=== PATIENT | female | born 1940 | race Caucasian/White ===

== ENCOUNTER 2016-04-23 20:08 | Emergency (ER) | payer MEDICARE, OTHER ==
--- NOTE | ~2016-04-23 | ER ---
PATIENT'S NAME: ANGIE EVANS [facility] AGE: 75 Y [address] ROOM: [place] [address] LOCATION: [facility] ADMIT DATE: 04/23/2016 ER/Outpatient Report DISCHARGE DATE: 04/23/2016 FAMILY PHYSICIAN: Precious Varela MD ATTENDING PHYSICIAN: Abdon Romero Time of Arrival: 2010 hours. Time of Evaluation: 2019 hours. CHIEF COMPLAINT: Fall. HISTORY OF PRESENT ILLNESS: The patient states about 12:30 today, she was leaving the dentist's office in [place] when she slipped on a curb and fell, hit her head and her left knee. States that she did not have any loss of consciousness. Bent her glasses, drove to the eye doctor in [place] and got her glasses fixed, and then drove home. States this evening she was out to dinner with friends and her , and was telling her friend about her fall and her friend stated that since she was on a blood thinner, she really should go in and get evaluated to make sure that she did not have any kind of injury as a result of the fall. She states she did talk with Dr. Thomasno, who was on-call tonight for her primary provider, and Dr. Thomason agree that she should come in and be evaluated. She states she is on blood thinners due to history of atrial fibrillation. The patient has abrasion to the forehead and right eyebrow, and bruising with discomfort of the left knee. ALLERGIES: NO KNOWN ALLERGIES. CURRENT MEDICATIONS: On her chart and reviewed by me. PAST MEDICAL HISTORY: Parkinson's, atrial fib, coronary artery disease, hypertension. PAST SURGERIES: Cardiac stents. SOCIAL HISTORY: She lives here in [place] with her . REVIEW OF SYSTEMS: All negative other than those mentioned in the HPI. PATIENT'S NAME: ANGIE EVANS [facility] AGE: 75 Y [address] ROOM: [place] [address] LOCATION: [facility] ADMIT DATE: 04/23/2016 ER/Outpatient Report DISCHARGE DATE: 04/23/2016 FAMILY PHYSICIAN: Precious Varela MD ATTENDING PHYSICIAN: Abdon Romero PHYSICAL EXAMINATION: VITAL SIGNS: She weighed 76.7 kg. Blood pressure is 164/86, pulse is 74, respirations 18, temperature of 97.7, and O2 saturation was 97% on room air. GENERAL: She is awake, alert, and oriented x4. SKIN: [place], warm, and dry. RESPIRATIONS: Even and nonlabored. HEENT: Pupils are equal reactive to light. Extraocular movement is intact. TMs are clear. Nasal clear. Oropharynx is clear. The patient does have an abrasion to the right forehead area. She does have an abrasion in the right eyebrow. NECK: Supple. No lymphadenopathy. LUNGS: Sounds are clear throughout. HEART: Regular rate and rhythm. EXTREMITIES: The patient walked in with a steady even gait. Moves all extremities strongly and equally. LABORATORY DATA: CBC is within normal limits. Chem panel: Sodium is 126, potassium is 3.7, and chloride is 90. CT of the head was completed. Radiology reports no acute intracranial process. Knee x-ray reviewed with Dr. Romero. IMPRESSION: Head injury. PLAN: Home, rest. Tylenol as needed for discomfort. Follow up with her primary provider. Return to the ER if symptoms persist or worsen. She verbalized understanding. SAMARA MACIAS APRN FOR MD CRISS WOOTEN/betsey /[id number] d: 04/24/16 0551 t: 04/26/16 1813, OUTPATIENT REPORT
[~2016-04-23 20:08] MED LIST: ASPIRIN EC81 MG PO; BETAPACE (GENER80 MG PO; CALCIUM 600 +1 EA13 PO; CHLORTHALIDONE25 MG PO; COLACE100 MG PO; COZAAR100 MG PO; DRISDOL 5050000 UNIT PO; DULCOLAX10 MG R; EFFEXOR75 MG PO; ESTROPIPATE0.75 MG PO; HYDROCHLOROTHIA25 MG PO; K-TAB 10MEQ10 MEQ PO; LOVENOX 4040 MG/0.4 SUB-Q; MELATONIN3 MG PO; MILK OF MA400 MG/5 M PO; MIRALAX17 GM PO; MIRAPEX0.25 MG PO; NORCO 5-325 MG1 TAB PO; PAMELOR10 M1 PO; PEPCID20 MG PO; PRILOSEC20 MG PO; SINEMET 25-1001 EACH PO; TRANXENE T-TAB7.5 MG PO; TYLENOL EXTRA500 MG PO; VALIUM2 MG PO; VITAMIN D35000 UNI1 PO; XARELTO20 MG PO; ZOCOR40 MG PO
[2016-04-23 20:56] LABS: BASOPHIL % 0.4 %; EOSINOPHIL # 0.1 K/uL (0.0-0.5); EOSINOPHIL % 1.2 %; HEMATOCRIT 38.1 % (33.0-46.0); HEMOGLOBIN 13.1 g/dL (10.0-15.0); IMMATURE GRANULOCYTE % 0.2 %; LYMPHOCYTE # 1.4 K/uL (0.8-4.0); LYMPHOCYTE % 16.4 %; MCH 29.6 pg (27.0-34.0); MCHC 34.4 gm/dL (32.0-36.5); MCV 86.2 fl (83.0-98.0); MONOCYTE # 0.9 K/uL (0.0-1.0); MONOCYTE % 10.3 %; MPV 9.4 fl (9.4-12.4); NEUTROPHIL # (ANC) 5.9 K/uL (1.8-7.8); NEUTROPHIL % 71.5 %; NRBC % 0 /100WBC (0-0.00); PLATELET COUNT 231 K/uL (150-450); RBC 4.42 M/uL (3.50-5.50); RDW-CV 12.6 % (11.9-14.6); WBC 8.3 K/uL (4.0-11.0)
[2016-04-23 21:09] LABS: PROTIME 10.6 SECONDS (9.6-11.1); PTT 32 SECONDS (25-32)
[2016-04-23 21:13] LABS: ALK PHOS 62 IU/L (33-138); ALT 26 IU/L (12-78); ANION GAP 13.7 (10.0-19.0); AST 23 IU/L (10-40); BLOOD UREA NITROGEN 15 mg/dL (6-24); CALCIUM 8.7 mg/dL (8.5-10.5); CHLORIDE 90 mMol/L (96-110); CO2 26 mMol/L (22-32); CREATININE 0.9 mg/dL (0.5-1.1); ESTIMATED GFR (MDRD EQUATION) > 60; POTASSIUM 3.7 mMol/L (3.7-5.1); SODIUM 126 mMol/L (135-145); TOTAL BILIRUBIN 0.5 mg/dL (0.0-1.5); TOTAL PROTEIN 7.5 g/dL (6.0-8.4)
== END 2016-04-23 21:47 | disposition disaster alternative care site (69) ==
LOC: GACC 20:08
PROVIDERS: Emergency Medicine
DX: S09.90XA Unspecified injury of head, initial encounter (principal); G20 Parkinson's disease; I48.91 Unspecified atrial fibrillation; I25.10 Atherosclerotic heart disease of native coronary artery without angina pectoris; I10 Essential (primary) hypertension; W01.10XA Fall on same level from slipping, tripping and stumbling with subsequent striking against unspecified object, initial encounter

== ENCOUNTER → 2016-05-07 | Outpatient (CLI) | payer MEDICARE, OTHER ==
[~2016-05-07] MED LIST changes: +PERCOCET 5-3251 EACH PO
== END | disposition disaster alternative care site (69) ==
LOC: LGSMG 11:59
DX: E87.1 Hypo-osmolality and hyponatremia (principal)

== ENCOUNTER 2016-05-08 07:41 | Day surgery (SDC) | payer MEDICARE, OTHER ==
[~2016-05-08] VITALS: Ht 157.5 cm; Wt 75.8 kg
--- NOTE | ~2016-05-08 | OR ---
PATIENT'S NAME: ANGIE EVANS [facility] AGE: 75 Y [address] ROOM: [place] [address] LOCATION: [facility] ADMIT DATE: 05/08/2016 OR/Procedure Report DISCHARGE DATE: FAMILY PHYSICIAN: STEPHANIE CORTEZ MD ATTENDING PHYSICIAN: KARINA ESPINAL SURGEON: Karina Espinal MD FUEL TECHNICIAN: Ankit Higginbotham PA-C DATE OF PROCEDURE: 05/08/2016 ORTHOPEDIC OPERATIVE NOTE PREOPERATIVE DIAGNOSIS: Left prepatellar hemorrhagic bursitis of knee. POSTOPERATIVE DIAGNOSIS: Left prepatellar hemorrhagic bursitis of knee. PROCEDURES PERFORMED: Irrigation and debridement of left knee with excision of prepatellar bursa. ANESTHESIA: General endotracheal anesthesia. FLUIDS: See Anesthesia report. ESTIMATED BLOOD LOSS: Minimal. TOURNIQUET: Left proximal thigh at 250 mmHg. SPECIMENS: None. COMPLICATIONS: None. DISPOSITION: Stable in PACU. COUNTS: All counts were correct. IMPLANTS: None. INDICATIONS FOR PROCEDURE: Ms. Evans is a pleasant 75-year-old female, who sustained a fall on Xarelto and developed a hemorrhagic left prepatellar bursitis. The skin was starting to break down. We have elected to proceed with an irrigation and debridement of the left knee today. Anesthesia was consulted for their perioperative evaluation of the patient. I marked the left lower extremity indicating the correct surgical site. OPERATIVE REPORT IN DETAIL: The patient was taken from the holding area to the operating room. A time-out was performed. General endotracheal PATIENT'S NAME: ANGIE EVANS [facility] AGE: 75 Y [address] ROOM: [place] [address] LOCATION: [facility] ADMIT DATE: 05/08/2016 OR/Procedure Report DISCHARGE DATE: FAMILY PHYSICIAN: STEPHANIE CORTEZ MD ATTENDING PHYSICIAN: KARINA ESPINAL anesthesia was administered. The patient was positioned supine on the operating room table and all other bony prominences were padded. A nonsterile tourniquet was placed on the left proximal thigh over Webril and a U-drape was placed beneath it. The left lower extremity was then prepped and draped in a sterile fashion. I turned my attention to the left knee. A final time-out was performed. An Esmarch was used to exsanguinate the limb, and the tourniquet was inflated to 250 mmHg. I made a 7-cm surgical incision over the anterior aspect of the patella. The incision was carried through skin and subcutaneous tissue. I identified a large coagulated hematoma that appeared to be re-organizing. I was able to excise a large portion of it. It was of a current jelly consistency. I performed the debridement with a rongeur to remove any non- friable tissue in the area. A 9 L of normal sterile saline solution via pulsatile lavage was passed through the wound. A layered closure was ensued using 2-0 Vicryl to approximate the subcutaneous tissue loosely followed by a 2-0 nylon suture in an interrupted horizontal mattress fashion to approximate the skin. 0.5% Marcaine plain was injected hui-incisionally for local anesthetic purposes. Sterile dressings were placed in the form of Xeroform, followed by 4x4, Webril, and Koffi wrap from the toes to the proximal thigh. The tourniquet was then let down. The patient was then transferred from the operating room table onto the stretcher and extubated. She was brought to the recovery room in stable condition. There were no intraoperative complications noted. Of note, my PA, Ankit harry PA-C, played an integral role in the intraoperative care of this patient. This included preoperative positioning, intraoperative expert retraction, and closing and dressing functions. IMPRESSION: The patient is status post the noted procedure above. PLAN: The patient will be weightbearing as tolerated on the left lower extremity. She has been instructed to keep her dressings clean, dry, and intact. They have been instructed to rest, ice, and elevate the extremity going forward. We will hold her Xarelto for 1 week postoperatively to prevent re-development of the hematoma. She will be discharged from the PACU to home provided she meets PACU discharge criteria. She had a low sodium which forced us to cancel this [facility]. Since that time, her sodium level has normalized. Per the Anesthesia team, they have requested that she, please, be observed for a number of hours postoperatively here at the hospital and to make sure that her sodium remained stable. I would like to see the patient back in my office in 1 week for a [facility] 75 Y [address] [address] [address] LOCATION: [facility] ADMIT DATE: 05/08/2016 OR/Procedure Report DISCHARGE DATE: FAMILY PHYSICIAN: STEPHANIE CORTEZ MD ATTENDING PHYSICIAN: KARINA ESPINAL wound check. MD HARMONY MURPHY/modl /[id number] d: 05/08/16 1225 t: 05/13/16 0922, OPERATIVE SUMMARY
[~2016-05-08 07:41] MED LIST changes: -PERCOCET 5-3251 EACH PO
[2016-05-08] MEDS ORDERED: PERCOCET 5-3251 EACH PO (11:41)
== END 2016-05-08 13:43 ==
LOC: GSDC 07:41 → G3N 07:41 → GSDC 11:00
PROC: 0MBP0ZZ Excision of Left Knee Bursa and Ligament, Open Approach (ICD-10-PCS; principal; 2016-05-08)
DX: M70.42 Prepatellar bursitis, left knee (principal); E87.1 Hypo-osmolality and hyponatremia; I48.91 Unspecified atrial fibrillation; I25.10 Atherosclerotic heart disease of native coronary artery without angina pectoris; I10 Essential (primary) hypertension; F41.9 Anxiety disorder, unspecified; E78.5 Hyperlipidemia, unspecified; Z79.82 Long term (current) use of aspirin; Z79.2 Long term (current) use of antibiotics; Z79.899 Other long term (current) drug therapy; Z90.710 Acquired absence of both cervix and uterus
CPT/HCPCS: J0690; J2001; J2250; J7030

== ENCOUNTER → 2016-05-13 | Outpatient (CLI) | payer MEDICARE, OTHER ==
[~2016-05-13] MED LIST changes: +PERCOCET 5-3251 EACH PO
== END | disposition disaster alternative care site (69) ==
LOC: LGSMG 11:18
DX: E87.1 Hypo-osmolality and hyponatremia (principal); E87.6 Hypokalemia